=== PATIENT | female | born 1960 | race Hispanic/Latino ===

== ENCOUNTER → 2018-07-02 | Outpatient (CLI) | payer BC | LOC: MAMMO 08:22 | PROVIDERS: ATTEND Obstetrics & Gynecology | DX: Z12.31 Encounter for screening mammogram for malignant neoplasm of breast (principal) | CPT/HCPCS: 77067 ==

== ENCOUNTER → 2018-12-18 | Outpatient (CLI) | payer BC ==
--- NOTE | 2018-12-18 09:12 | Diagnostic Imaging Report ---
EXAM: US ABDOMEN COMPLETE DATE: 12/18/2018 8:23 AM INDICATION: Elevated LFTs COMPARISON: None FINDINGS: The visualized pancreas is unremarkable. The liver is normal in size measuring 12.2 cm in length. The hepatic parenchyma is homogeneous without evidence for focal abnormality. The main portal vein is patent with antegrade flow and diameter of 0.8 cm, within normal limits. Multiple shadowing stones are identified within the gallbladder. There is no evidence for gallbladder wall thickening or pericholecystic fluid. There is no intra or extra hepatic biliary ductal dilatation. The common bile duct measures 2-3 mm. Sonographic Alberts's sign is negative. The spleen is normal in size measuring 10.5 cm in length and demonstrates an unremarkable sonographic appearance. The kidneys are normal in size measuring 10.1 cm in length on the right and 10.6 cm in length on the left. Cortical thickness and echogenicity are within normal limits. There is no evidence for solid renal mass, hydronephrosis, or shadowing calculi. The visualized portions of the IVC and aorta are within normal limits. There is no ascites present. IMPRESSION: Cholelithiasis without sonographic evidence for acute cholecystitis. Otherwise, unremarkable abdominal ultrasound examination. Signed by: Dr. Seth Armenta MD on 12/18/2018 9:09 AM
== END ==
LOC: US 08:12
PROVIDERS: ATTEND Internal Medicine
DX: R74.8 Abnormal levels of other serum enzymes (principal)
CPT/HCPCS: 76700

== ENCOUNTER → 2020-02-04 | Outpatient (CLI) | payer BC ==
--- NOTE | 2020-02-04 10:44 | Diagnostic Imaging Report ---
EXAM: Complete Abdominal Ultrasound INDICATION: Abnormal liver function test ^ABNORMAL LIVER FUNCTION / CALCULUS OF GALLBLADDER COMPARISON: None. TECHNIQUE: Transverse and longitudinal images of the upper abdomen were obtained. FINDINGS: Liver: Size: 11.4 cm in the right midclavicular line, normal Appearance: Normal echogenicity, smooth contour Mass: No focal masses Spleen: Size: 9.0 cm in length, normal Echogenicity: Normal Mass: No focal masses Gallbladder: Stones/Sludge: Multiple gallstones in the gallbladder neck and body Wall: 0.2 cm Appearance: No wall thickening, pericholecystic fluid or hydrops. Sonographic Alberts's Sign: Negative Bile Ducts: Intrahepatic Ducts: No dilatation Extrahepatic Ducts: Common bile duct measures 0.2 cm, no dilatation Pancreas: Visualized portions of the pancreatic head, neck and proximal body are normal. Kidneys: Length: Right 10.5 cm Left 10.5 cm Echogenicity: Normal Collecting System: No hydronephrosis Stone: None Cyst/Mass: None Vessels: Aorta: Visualized portions are normal Inferior Vena Cava: Visualized portions are normal Main Portal Vein: 0.7 cm, normal size with hepatopetal flow. Free Fluid: No ascites or pleural effusion IMPRESSION: Multiple gallstones in the gallbladder neck and body. No ductal dilatation. Normal appearing liver. Signed by: Dr. Tyson Green M.D. on 02/04/2020 10:41 AM
== END ==
LOC: US 10:00
PROVIDERS: ATTEND Internal Medicine
DX: R94.5 Abnormal results of liver function studies (principal); K80.20 Calculus of gallbladder without cholecystitis without obstruction
CPT/HCPCS: 76700

== ENCOUNTER → 2020-09-10 | Outpatient (CLI) | payer BC | LOC: MAMMO 08:43 | PROVIDERS: ATTEND Obstetrics & Gynecology Obstetrics | DX: Z12.31 Encounter for screening mammogram for malignant neoplasm of breast (principal) | CPT/HCPCS: 77067 ==

== ENCOUNTER → 2022-07-28 | Outpatient (CLI) | payer BC | LOC: MAMMO 13:39 | PROVIDERS: ATTEND Obstetrics & Gynecology Obstetrics | DX: Z12.31 Encounter for screening mammogram for malignant neoplasm of breast (principal) | CPT/HCPCS: 77067 ==

== ENCOUNTER → 2022-10-12 | Outpatient (CLI) | payer BC ==
[~2022-10-12] MED LIST: DIATRIZOATE MEGL/DIATRIZOA SOD 30 ML BTL PO ONE; IOPAMIDOL 370 MG/ML 100 ML INFUS..BTL INJ ONE
[2022-10-12 09:33] LABS: CREATININE, SERUM 0.61 mg/dL (0.57-1.11)
== END ==
LOC: CT 08:43
PROVIDERS: ATTEND Nurse Practitioner
DX: R10.32 Left lower quadrant pain (principal); K80.20 Calculus of gallbladder without cholecystitis without obstruction
CPT/HCPCS: 36415; 74177; 76700; 82565; 84520; Q9963; Q9967